=== PATIENT | female | born 1960 | race Caucasian/White ===

== ENCOUNTER → 2024-06-10 06:46 | Outpatient (REF) | payer MEDICARE, OTHER, SELFPAY | LOC: HWWDC 06:46 | PROVIDERS: ATTENDING PHYSICIAN Nurse Practitioner Family; FAMILY PHYSICIAN Family Medicine | DX: Z12.31 Encounter for screening mammogram for malignant neoplasm of breast (principal) | CPT/HCPCS: 77063; 77067 ==

== ENCOUNTER → 2024-08-01 11:55 | Outpatient (REF) | payer OTHER, SELFPAY | LOC: RAD 11:55 | PROVIDERS: FAMILY PHYSICIAN Family Medicine | DX: M50.20 Other cervical disc displacement, unspecified cervical region (principal); M51.360 Other intervertebral disc degeneration, lumbar region with discogenic back pain only | CPT/HCPCS: 72040; 72110 ==

== ENCOUNTER 2024-09-04 19:37 | Emergency (ER) | payer OTHER, SELFPAY ==
[2024-09-04 19:38] VITALS: BP 175/88
--- NOTE | 2024-09-04 22:20 | ED.SKININJ ---
HPI-Injury
General
Chief Complaint: Bite
Time Seen by Provider: 09/04/24 21:07
History of Present Illness-Injury
Initial Injury comments:
64-year-old female without significant past medical history presenting to the emergency department for a dog bite. Patient was bit by her own dog prior to arrival, notes that it was triggered, however has had behavioral issues since they got the
dog. The dog is 9 months old. Notes multiple bites to upper extremities. Denies numbness or tingling to arms. Denies fever or additional acute medical complaints. Reports that her tetanus is up-to-date. Reports the dog's vaccinations is
up-to-date
Phy Exam
Physical Exam
Physical Exam:
General: Well-appearing, no clinical signs of dehydration, nontoxic and in no acute distress
HEENT: protecting airway
Neck: appears supple
CV: Normal heart rate, regular rhythm
Resp: No accessory muscle use, no increased work of breathing
Abd: no distension
Extremities: Several puncture wounds to bilateral upper extremities distally. Most notable laceration is left hypothenar eminence, subcutaneous. No neurovascular compromise. No erythema or abnormal drainage
Neuro: alert, no focal neurologic deficit
: deferred
Rectal: deferred
Psych: Normal affect
Skin: Intact
Course
Orders/Labs/Results
Orders:
Orders
09/04/24 22:20
Amoxicillin 875 mg/Clav 125 mg [Augmentin 875 mg/125 mg] 1 tablet PO NOW STA
Vital Signs
Initial and Last Documented VS:
Initial Vital Signs
Temp Pulse Resp BP Pulse Ox
97.7 F 67 17 175/88 99
09/04/24 19:38 09/04/24 19:38 09/04/24 19:38 09/04/24 19:38 09/04/24 19:38
Last Documented Vital Signs
Temp Pulse Resp BP Pulse Ox
97.7 F 67 17 175/88 99
09/04/24 19:38 09/04/24 19:38 09/04/24 19:38 09/04/24 19:38 09/04/24 19:38
Procedures
Laceration Closure
Left Plantar First Hand:
Status of Wound: clean
Size of Wound in cm: 3
Preparation: cleaned with saline
Anesthesia: 1% Lidocaine
Wound exploration: extensive cleaning of contaminated wound
Type of Closure: single layer closure
Skin Closure Material: 4-0 prolene
Number of sutures: 3
MDM/Problems Addressed
MDM/Problems Addressed:
64-year-old female presenting after dog bite from her own dog. Vital signs significant for hypertension, however patient is upset on arrival.
On exam, resting comfortably, no acute distress. Patient with multiple superficial bites to bilateral distal upper extremities. No neurovascular compromise. No present infectious concerns. Patient's tetanus is up-to-date. Will start on
Augmentin. Notes that her dog's vaccinations are up to date without indication for rabies series. Wounds were extensively irrigated. 3 sutures placed in the left hypothenar eminence, deep laceration. Feel stable for discharge with outpatient
wound reassessment in 3 to 5 days. Return precaution discussed and patient verbalized understanding
*Critical Care Note
Total Time (30-74mins, 75-104mins- exclusive of procedures): Not Applicable
ED Attending Note
-
Portions of this chart may have been created with voice recognition software.� Occasional wrong word or��sound alike� substitutions may have occurred due to the inherent limitations of voice recognition software.
Discharge Plan
Departure
Patient Disposition: Home (Routine Discharge)
Date of Disposition: 09/04/24
Time of Disposition: 22:21
Patient with high blood pressure during this ER visit?: Yes
Condition: Good
Discharge Problem:
Dog bite of multiple sites
Instructions: Animal Bites (DC), Wound Care (DC), Laceration Repair With Stitches (DC)
Prescriptions:
New
amoxicillin-pot clavulanate 875-125 mg tablet
1 tab PO BID 7 Days Qty: 14 0RF
Referrals:
Aamir Infante DO [Family Provider] -
Activity Restrictions/Additional Instructions:
You were seen in the emergency department for dog bites
You were found to have multiple bites your upper extremities. You had 3 sutures placed in your left hand. Sutures will need to be removed in 5 to 7 days. Please take your antibiotics as prescribed. If you find any increased swelling, redness, or
abnormal drainage, return for concern of infection
Please follow-up closely with your primary care physician.
Return to the emergency department for any worsening of your symptoms, or any development of chest pain, difficulty breathing, abdominal pain with persistent vomiting and inability to tolerate food or liquid by mouth (concern for dehydration),
weakness, headache or confusion, fever greater than 100.4, or any additional symptoms that are concerning to you.
Thank you for choosing [facility].
Interventions
Interventions:
*Risk Screen - Suicide Last Done: 09/04/24 19:39
*General Assessment Last Done: 09/04/24 19:39
*Neglect/Abuse Screening Last Done: 09/04/24 19:39
*ED COVID-19 Vaccine History Last Done: 09/04/24 19:39
ED-Skin Assessment Last Done: 09/04/24 21:32
Discharge Date and Time
Print Language: DJIBOUTIAN
[2024-09-04] MEDS: AUGMENTIN 875 MG/125 MG 1 TABLET PO (22:29)
== END 2024-09-04 22:41 | disposition home or self-care (01) ==
LOC: EMR 19:37
PROVIDERS: EMERGENCY PHYSICIAN Student in an Organized Health Care Education/Training Program; FAMILY PHYSICIAN Family Medicine
DX: S61.412A Laceration without foreign body of left hand, initial encounter (principal); W54.0XXA Bitten by dog, initial encounter; I10 Essential (primary) hypertension
CPT/HCPCS: 99282; 12002

== ENCOUNTER → 2024-09-15 08:25 | Outpatient (REF) | payer OTHER, SELFPAY | LOC: HWRAD 08:25 | PROVIDERS: ATTENDING PHYSICIAN Advanced Practice Midwife; FAMILY PHYSICIAN Family Medicine | DX: D25.9 Leiomyoma of uterus, unspecified (principal) | CPT/HCPCS: 76830; 76856 ==

== ENCOUNTER → 2025-07-08 06:58 | Outpatient (REF) | payer OTHER, SELFPAY | LOC: HWRAD 06:58 | PROVIDERS: ATTENDING PHYSICIAN Nurse Practitioner Family; FAMILY PHYSICIAN Family Medicine | DX: Z12.31 Encounter for screening mammogram for malignant neoplasm of breast (principal); Z78.0 Asymptomatic menopausal state | CPT/HCPCS: 77063; 77067 ==